=== PATIENT | female | born 1950 | race Caucasian/White ===

== ENCOUNTER → 2016-12-01 | Outpatient (CLI) | payer BC ==
[~2016-12-01] MED LIST: DEXL60CA4 PO; DICY10CA12 PO; FLNIN NAE; LYSI500T4 PO; SIMV20TA2 PO; tylenol sinus PO
--- NOTE | 2016-12-01 13:56 | MAMMOGRAPHY REPORT ---
BILATERAL DIGITAL SCREENING MAMMOGRAM WITH CAD: 12/01/2016 CLINICAL HISTORY: Routine screening. TECHNIQUE: Current study was also evaluated with a Computer Aided Detection (CAD) system. Bilatera l CC and MLO views were obtained. COMPARISON: Comparison is made to exams dated: 11/04/2015 mammogram, 10/22/2014 mammogram, 07/18/2013 mammogram, 07/12/2012 mammogram, 03/24/2011 mammogram, and 03/23/2010 mammogram - [facility]. BREAST COMPOSITION: There are scattered areas of fibroglandular density in both breasts. FINDINGS: No suspicious masses, calcifications, or areas of architectural distortion are noted in e ither breast. There has been no significant interval change compared to prior exams. IMPRESSION: ACR BI-RADS CATEGORY 1: NEGATIVE There is no mammographic evidence of malignancy. A 1 year screening mammogram is recommended. The p atient will receive written notification of the results. Approximately 10% of breast cancers are not detected with mammography. A negative mammographic repor t should not delay biopsy if a clinically suggestive mass is present. Sharon Garza M.D. ah/:12/01/2016 12:10:11 Metal Gauge Maker: Olaf SHARMA(R)(M), [facility] letter sent: Normal 1/2 BI-RADS Code: ACR BI-RADS Category 1: Negative
== END | disposition home or self-care (01) ==
LOC: C.MAMM 10:15
PROVIDERS: ATTEND Obstetrics & Gynecology
DX: Z12.31 Encounter for screening mammogram for malignant neoplasm of breast (principal)

== ENCOUNTER → 2017-03-03 | Outpatient (CLI) | payer BC ==
[2017-03-03 12:36] LABS: BLOOD UREA NITROGEN 9 mg/dl (7-18); BUN/CREATININE RATIO 12.4 (10-20); CALCIUM 9.1 mg/dl (8.5-10.1); CARBON DIOXIDE 28 mmol/L (21-32); CHLORIDE 107 mmol/L (98-107); CREATININE 0.74 mg/dl (0.60-1.20); GLUCOSE 77 mg/dl (70-99); POTASSIUM 4.8 mmol/L (3.5-5.1); SODIUM 141 mmol/L (136-145)
[2017-03-03 12:39] LABS: CHOLESTEROL 206 mg/dl (0-200); CHOLESTEROL/HDL RATIO 2.8; HDL CHOLESTEROL 73 mg/dl; TRIGLYCERIDES 100 mg/dl (0-150); VERY LOW DENSITY LIPOPROT CALC 20 mg/dl
== END | disposition home or self-care (01) ==
LOC: C.LABSPEC 12:03
PROVIDERS: ATTEND Internal Medicine
DX: E78.5 Hyperlipidemia, unspecified (principal); Z00.00 Encounter for general adult medical examination without abnormal findings

== ENCOUNTER → 2017-04-04 | Outpatient (CLI) | payer BC | END | disposition home or self-care (01) | LOC: C.LABSPEC 12:29 | PROVIDERS: ATTEND Internal Medicine | DX: R53.83 Other fatigue (principal) ==

== ENCOUNTER → 2017-07-26 | Outpatient (CLI) | payer BC ==
[~2017-07-26] MED LIST changes: +OPTIRAY 320 IV PRN
--- NOTE | 2017-07-26 11:38 | DIAGNOSTIC IMAGING REPORT ---
LOWER EXTREMITY WITH CLINICAL HISTORY: 66 years-old Female presenting with LEFT KNEE, CLOSED FX OF LEFT TIBIAL PLATEAU. TECHNIQUE: Multidetector CT of the left knee was performed after the administration of intravenous contrast. IV contrast: 93 mL of Optiray 320. A dose lowering technique was used consistent with the principles of ALARA (as low as reasonably achievable). COMPARISON: None. CT DOSE (mGy.cm): The estimated cumulative dose is 160.54 mGy.cm. FINDINGS: [employer] Bi Developer topogram: Unremarkable. The knee joint is congruent. No cortical step-off at the articular surface of the tibial plateau. Evidence of minimal subchondral sclerosis and early cystic change in both the articular surfaces of the medial and lateral femoral condyles and medial lateral tibial plateau consistent with degenerative change. No significant osteophytosis. Mild joint space loss in the medial compartment may be present. Similar changes also present at the patellofemoral articulation. No acute fracture or malalignment. Specifically, no convincing evidence of a tibial plateau fracture at this time. Suggestion of underlying osteopenia. This limits evaluation for nondisplaced fracture. Trace knee joint effusion. No popliteal cyst. Evaluation of the soft tissues is limited by CT. Allowing for this, the posterior cruciate ligament appears intact. Anterior cruciate ligament poorly assessed. Menisci poorly assessed. Quadriceps and patellar tendons intact. Collateral ligaments poorly assessed. Normal muscle bulk. Minimal nonspecific subcutaneous edema noted in the infrapatellar region as well as the popliteal fossa. Atherosclerosis with patent popliteal artery and major branch vessels. IMPRESSION: 1. No convincing evidence of a tibial plateau fracture at this time. Osteopenia limits evaluation for nondisplaced fracture. 2. Tricompartmental degenerative changes. 3. Trace knee joint effusion. Electronically signed by: Mookie Thakkar M.D. 07/26/2017 11:37 AM Dictated Date/Time: 07/26/2017 11:31 AM
== END | disposition home or self-care (01) ==
LOC: C.CTS 10:42
DX: M25.562 Pain in left knee (principal)

== ENCOUNTER → 2017-12-20 | Outpatient (CLI) | payer BC ==
[~2017-12-20] MED LIST changes: -OPTIRAY 320 IV PRN
--- NOTE | 2017-12-21 15:06 | MAMMOGRAPHY REPORT ---
BILATERAL DIGITAL SCREENING MAMMOGRAM TOMOSYNTHESIS WITH CAD: 12/20/2017 CLINICAL HISTORY: Routine screening. Patient has no complaints. TECHNIQUE: Breast tomosynthesis in addition to standard 2D mammography was performed. Current study was also evaluated with a Computer Aided Detection (CAD) system. COMPARISON: Comparison is made to exams dated: 12/01/2016 mammogram, 11/04/2015 mammogram, 10/22/2014 m ammogram, 07/18/2013 mammogram, 03/24/2011 mammogram, and 07/12/2012 mammogram - [facility]. BREAST COMPOSITION: There are scattered areas of fibroglandular density in both breasts. FINDINGS: The parenchymal pattern is unchanged. No developing mass, architectural distortion or clus ter of suspicious microcalcifications is seen in either breast. IMPRESSION: ACR BI-RADS CATEGORY 2: BENIGN There is no mammographic evidence of malignancy. A 1 year screening mammogram is recommended. The pa tient will receive written notification of the results. Approximately 10% of breast cancers are not detected with mammography. A negative mammographic report should not delay biopsy if a clinically suggestive mass is present. Keli Ayers M.D. ay/:12/20/2017 16:23:58 Motor Vehicle Examiner: Anu SHARMA(Zach)(M), [facility] letter sent: Normal 1/2 BI-RADS Code: ACR BI-RADS Category 2: Benign
== END | disposition home or self-care (01) ==
LOC: C.MAMM 10:12
PROVIDERS: ATTEND Obstetrics & Gynecology
DX: Z12.31 Encounter for screening mammogram for malignant neoplasm of breast (principal)

== ENCOUNTER 2019-06-26 18:11 | Observation (INO) ==
[2019-06-26] MEDS ORDERED: SODIUM CHLORIDE 0.9% 1000ML 1,000 ML IV ONE (18:52)
[2019-06-26 19:11] LABS: Basophils # (auto) 0.01 K/uL (0-0.2); Basophils % (auto) 0.1 %; Eosinophils # (auto) 0.13 K/uL (0-0.5); Eosinophils % (auto) 1.5 %; Hematocrit (blood only) 39.2 % (37-47); Hemoglobin 13.2 g/dL (12.0-16.0); Immature Granulocytes # (auto) 0.02 K/uL (0.00-0.02); Immature Granulocytes % (auto) 0.2 %; Lymphocytes # (auto) 2.08 K/uL (1.2-3.4); Lymphocytes % (auto) 24.1 %; Mean Corpuscular Hemoglobin 29.5 pg (25-34); Mean Corpuscular Hgb Conc 33.7 g/dL (32-36); Mean Corpuscular Volume 87.5 fL (80-100); Monocytes # (auto) 0.47 K/uL (0.11-0.59); Monocytes % (auto) 5.4 %; Neutrophils # (auto) 5.92 K/uL (1.4-6.5); Neutrophils % (auto) 68.7 %; Platelet Count 283 K/uL (130-400); RDW Coefficient of Variation 13.5 % (11.5-14.5); RDW Standard Deviation 43.4 fL (36.4-46.3); Red Blood Count 4.48 M/uL (4.2-5.4); White Blood Count 8.63 K/uL (4.8-10.8)
--- NOTE | 2019-06-26 19:24 | XRay Report ---
XR chest 1V portable CLINICAL HISTORY: 68 years-old Female presenting with Chest Pain. TECHNIQUE: Portable upright AP view of the chest was obtained. COMPARISON: None. FINDINGS: Cardiomediastinal silhouette normal. Minimal basilar opacities. No pleural effusion or pneumothorax. Osseous structures normal. Upper abdomen normal. IMPRESSION: 1. Minimal basilar opacities likely atelectasis or scarring. No convincing evidence of acute cardiop ulmonary disease. Electronically signed by: Mookie Thakkar M.D. 06/26/2019 7:23 PM
[2019-06-26 19:30] LABS: Alanine Aminotransferase 21 U/L (12-78); Albumin Globulin Ratio 1.1 (0.9-2); Albumin Level 3.8 gm/dl (3.4-5.0); Alkaline Phosphatase 64 U/L (45-117); Aspartate Aminotransferase 20 U/L (15-37); BUN Creatinine Ratio 17.8 (10-20); Bilirubin,Total 0.4 mg/dl (0.2-1); Blood Urea Nitrogen 11 mg/dl (7-18); Calcium 9.2 mg/dl (8.5-10.1); Carbon Dioxide 25 mmol/L (21-32); Chloride 106 mmol/L (98-107); Creatinine Clr Calc Pharmacy 75.7 ml/min; Est GFR (African American) 106.3; Est GFR (Non-African American) 91.7; Globulin 3.4 gm/dl (2.5-4.0); Glucose 94 mg/dl (70-99); Lipase 256 U/L (73-393); Magnesium 1.9 mg/dl (1.8-2.4); Phosphorus 3.3 mg/dl (2.5-4.9); Potassium 3.7 mmol/L (3.5-5.1); Sodium 139 mmol/L (136-145); Total Protein 7.2 gm/dl (6.4-8.2)
[2019-06-26 19:36] LABS: Thyroid Stimulating Hormone 0.942 uIu/ml (0.300-4.500); Troponin I < 0.015 ng/ml (0-0.045)
[2019-06-26] MEDS ORDERED: DiphenhydrAMINE HCL 50 MG/ML VIAL IV STA (19:49)
[2019-06-26] MEDS ORDERED: FAMOTIDINE 20MG IV PUSH 20 MG/5 ML SYR IV STA (19:49)
[2019-06-26] MEDS ORDERED: METOCLOPRAMIDE HCL INJ 5 MG/ML 2 ML VIAL IV STA (19:49)
[2019-06-26] MEDS ORDERED: OPTIRAY 320 125ml IV PRN (20:23)
--- NOTE | 2019-06-26 20:34 | CT Scan Report ---
CT angio chest PE protocol CLINICAL HISTORY: 68 years-old Female presenting with left-sided chest pain, back pain, clinical conc ralph for pulmonary embolus. TECHNIQUE: Multidetector CT angiography of the chest was performed after administration of intravenou s contrast. 3-D volumetric and/or maximum intensity projection (MIP) images were subsequently reconst ructed for review. IV contrast: 86 mL of Optiray 320. One or more dose lowering techniques were used consistent with the principles of ALARA (as low as reasonably achievable), including automatic exposu re control, mA or kV adjustment to individual patient size, and/or use of iterative reconstruction. COMPARISON: Chest x-ray performed earlier today. CT DOSE (mGy.cm): The estimated cumulative dose is 233.27 mGy.cm. FINDINGS: Caustic Room Operator topogram: Cholecystectomy clips. Pulmonary vasculature: The study is adequate for assessment of the pulmonary vascular tree. No filling defect within the pul monary arteries to suggest embolus. Main pulmonary artery is not enlarged. No flattening of the inter ventricular septum. No intracardiac filling defect. No reflux of contrast into the hepatic veins. Remaining chest: Soft tissues: Normal thyroid and thoracic inlet. No axillary, supraclavicular, mediastinal, or hilar lymphadenopathy. 4 vessel aortic arch. Normal heart size. Trace aortic valve calcification. No perica rdial or pleural effusion. Cholecystectomy clips. Lungs and airways: No pneumothorax. Central airways patent. Pulmonary arteries are not significantly enlarged relative to adjacent bronchi. No interlobular septal thickening. Minimal dependent changes l ikely atelectasis. Mild upper lobe predominant centrilobular emphysema. No focal nodule or infiltrate . Musculoskeletal: Degenerative changes of the spine. IMPRESSION: 1. No evidence of pulmonary embolus. No acute intrathoracic pathology. 2. Emphysema. Electronically signed by: Mookie Thakkar M.D. 06/26/2019 8:33 PM
--- NOTE | 2019-06-26 21:15 | Emergency Department Note ---
Entered by Jes Street acting as a scribe for History of Present Illness General Chief complaint: Chest Pain Stated complaint: CHEST AND BACK PAIN, NAUSEA Time Seen by Provider: 06/26/19 18:51 Source: patient History of Present Illness Onset (ago): hour(s) 4 Location: chest Radiation: back Pain Consistency: + intermittent Maximum Pain Intensity: 5 Quality: + aching Exacerbated By: not by other (deep breathing) Associated symptoms: + nausea/vomiting (Positive nausea. Negative vomiting. ) and + other (congestion); no cough and no fever/chills The patient is a 68 year old female who presents to the Emergency Room with complaints of intermittent chest pain starting 4 hours ago. The patient states t hat she started having left sided chest pain that radiated directly into her back. She reports that it felt like a tooth ache. She states that it would come for a few seconds every few minutes. She reports that when she got here, it subsided for a little, but has now started back up on her left side/ribs. She states that she has had GERD in the past, but typically her symptoms are right on her sternum. The patient notes that she was nauseous this morning when she woke up and has continued to be nauseous. The patient complains of congestion. The patient denies ever having this happen before, fever, chills, cough, vomiting, pain with deep breathing, and a use of blood thinners. Home Medications Home Medications Medication Instructions Recorded Confirmed Type cholecalciferol (vitamin D3) 1,000 unit PO DAILY 06/26/19 06/26/19 History [Vitamin D3] fluticasone propionate [Flonase 2 spray INTRANASAL DAILY PRN 06/26/19 06/26/19 History Allergy Relief] lysine 500 mg PO DAILY 06/26/19 06/26/19 History omeprazole 20 mg PO DAILY 06/26/19 06/26/19 History [id number] 1 - 2 tab PO HS PRN 06/26/19 06/26/19 History [Tylenol Sinus Severe] Allergies Allergy/AdvReac Type Severity Reaction Status Date / Time aspirin AdvReac Unknown HX OF Verified 06/26/19 19:05 GERD, TSANG'S ESOPHAGUS Past Med/Surg History Medical History Allergic rhinitis Tsang esophagus Hx of gastroesophageal reflux (GERD) Family History Other Family history non-contributory Social History Preferred Language: Czech Communication Ability: Effective Beliefs That Will Affect Care: None marital status: Current Living Situation: Spouse current occupational status: employed Feels Safe at Home: Yes Smoking Status: Never smoker Hx Alcohol Use: No Hx Substance Use: No Review of Systems See HPI for pertinent positives & negatives. and A total of 10 systems reviewed and were otherwise negative Physical Exam Vital Signs Vital Signs - 24 hr 06/26/19 18:15 06/26/19 19:08 06/26/19 20:02 Temperature 36.4 C L Temperature Source Oral Pulse Rate 83 Pulse Rate [Bilateral Apical] 75 77 Respiratory Rate 16 18 18 Respiratory Effort / Characteristics Non-Labored Respiratory Depth Normal Blood Pressure 146/82 H Blood Pressure [Left Arm] 135/72 143/73 H Blood Pressure Mean 103 Blood Pressure Mean [Left Arm] 93 96 Pulse Oximetry 97 97 98 Oxygen Delivery Method Room Air Sepsis Recent Fever Within 48 Hours No Sepsis New/Unexplained Change in Mental Status No Sepsis Action Taken by Nursing No Action Required 06/26/19 20:36 06/26/19 21:21 Temperature Temperature Source Pulse Rate Pulse Rate [Bilateral Apical] 85 89 Respiratory Rate 18 18 Respiratory Effort / Characteristics Respiratory Depth Blood Pressure Blood Pressure [Left Arm] 136/62 122/55 L Blood Pressure Mean Blood Pressure Mean [Left Arm] 86 77 Pulse Oximetry 98 98 Oxygen Delivery Method Room Air Room Air Sepsis Recent Fever Within 48 Hours Sepsis New/Unexplained Change in Mental Status Sepsis Action Taken by Nursing GENERAL: Awake, alert, well-appearing, in no distress HENT: Normocephalic, atraumatic. Oropharynx with dry mucous membranes and otherwise unremarkable. EYES: Normal conjunctiva. Sclera non-icteric. NECK: Supple. No nuchal rigidity. FROM. No JVD. RESPIRATORY: Clear to auscultation bilaterally. CARDIAC: Regular rate, normal rhythm. Extremities warm and well perfused. Pulses equal. ABDOMEN: Soft, non-distended. No tenderness to palpation. No rebound or guar ding. No masses. RECTAL: Deferred. MUSCULOSKELETAL: Chest examination reveals no tenderness. The back is symmetrical on inspection without obvious abnormality. There is no CVA tenderness to palpation. No joint edema. LOWER EXTREMITIES: Calves are equal size bilaterally and non-tender. No edema. No discoloration. NEURO: Normal sensorium. No sensory or motor deficits noted. SKIN: No rash or jaundice noted. Course Course 1929: The patient was evaluated in room B11A. A complete history and physical exam was performed. Administered Medications Ioversol (Optiray 320 125ml) 86 ml IV ONCE PRN PRN Reason: Interaction Checking Stop: 06/30/19 20:22 Last Admin: 06/26/19 20:23 Dose: 86 ml Documented by: [id number] Discontinued Medications Diphenhydramine HCl (Benadryl) 25 mg IV NOW STA Stop: 06/26/19 19:50 Last Admin: 06/26/19 19:59 Dose: 25 mg Documented by: [id number] Sodium Chloride (Nss 1000ml) 1,000 mls @ 999 mls/hr IV .Q1H1M ONE Stop: 06/26/19 19:52 Last Infusion: 06/26/19 21:38 Dose: 0 mls/hr Documented by: [id number] Admin: 06/26/19 19:11 Dose: 999 mls/hr Documented by: [id number] Famotidine (Pepcid 20mg Iv Push) 20 mg in 5 mls @ 2.5 mls/min IV NOW STA Stop: 06/26/19 19:50 Last Admin: 06/26/19 19:59 Dose: 2.5 mls/min Documented by: [id number] Metoclopramide HCl (Reglan) 10 mg IV NOW STA Stop: 06/26/19 19:50 Last Admin: 06/26/19 19:59 Dose: 10 mg Documented by: [id number] Impression & Plan Left-sided chest pain, New onset left bundle branch block (LBBB), Tsang esophagus, Nausea Medical Decision Making Differential Diagnosis Differential diagnoses includes but is not limited to acute coronary syndrome, myocardial infarction, pericarditis, pulmonary embolus, aortic dissection, pneumonia, pneumothorax, musculoskeletal, shingles, esophageal. Medical Records Attestation: I reviewed the patient's medical records. Home Medications Current Medication List: was personally reviewed by me Laboratory Data Attestation: I reviewed the patient's lab results. Result diagrams: 06/26/19 18:50 06/26/19 18:50 Lab Results 06/26/19 06/26/19 Range/Units 18:50 18:50 WBC 8.63 (4.8-10.8) K/uL RBC 4.48 (4.2-5.4) M/uL Hgb 13.2 (12.0-16.0) g/dL Hct 39.2 (37-47) % MCV 87.5 (80-100) fL MCH 29.5 (25-34) pg MCHC 33.7 (32-36) g/dL RDW Std Deviation 43.4 (36.4-46.3) fL RDW Coeff of Balta 13.5 (11.5-14.5) % Plt Count 283 (130-400) K/uL MPV 9.0 (7.4-10.4) fL Immature Gran % (Auto) 0.2 % Neut % (Auto) 68.7 % Lymph % (Auto) 24.1 % [place] % (Auto) 5.4 % Eos % (Auto) 1.5 % Baso % (Auto) 0.1 % Immature Gran # (Auto) 0.02 (0.00-0.02) K/uL Neut # (Auto) 5.92 (1.4-6.5) K/uL Lymph # (Auto) 2.08 (1.2-3.4) K/uL [place] # (Auto) 0.47 (0.11-0.59) K/uL Eos # (Auto) 0.13 (0-0.5) K/uL Baso # (Auto) 0.01 (0-0.2) K/uL Sodium 139 (136-145) mmol/L Potassium 3.7 (3.5-5.1) mmol/L Chloride 106 (98-107) mmol/L Carbon Dioxide 25 (21-32) mmol/L Anion Gap 8.0 (3-11) BUN 11 (7-18) mg/dl Creatinine 0.64 (0.6-1.2) mg/dl Est Cr Clr Drug Dosing 75.7 ml/min Est GFR ( Amer) 106.3 Est GFR (Non-Af Amer) 91.7 BUN/Creatinine Ratio 17.8 (10-20) Glucose 94 (70-99) mg/dl Calcium 9.2 (8.5-10.1) mg/dl Phosphorus 3.3 (2.5-4.9) mg/dl Magnesium 1.9 (1.8-2.4) mg/dl Total Bilirubin 0.4 (0.2-1) mg/dl AST 20 (15-37) U/L ALT 21 (12-78) U/L Alkaline Phosphatase 64 (45-117) U/L Troponin I < 0.015 (0-0.045) ng/ml Total Protein 7.2 (6.4-8.2) gm/dl Albumin 3.8 (3.4-5.0) gm/dl Globulin 3.4 (2.5-4.0) gm/dl Albumin/Globulin Ratio 1.1 (0.9-2) Lipase 256 (73-393) U/L TSH 0.942 (0.300-4.500) uIu/ml Imaging Data Radiologist's Impression: Radiology results as stated below per my review and the radiologist's interpretation: XR chest 1V portable CLINICAL HISTORY: 68 years-old Female presenting with Chest Pain. TECHNIQUE: Portable upright AP view of the chest was obtained. COMPARISON: None. FINDINGS: Cardiomediastinal silhouette normal. Minimal basilar opacities. No pleural effusion or pneumothorax. Osseous structures normal. Upper abdomen normal. IMPRESSION: 1. Minimal basilar opacities likely atelectasis or scarring. No convincing evidence of acute cardiopulmonary disease. Electronically signed by: Mookie Thakkar M.D. 06/26/2019 7:[address] angio chest PE protocol CLINICAL HISTORY: 68 years-old Female presenting with left-sided chest pain, b ack pain, clinical concern for pulmonary embolus. TECHNIQUE: Multidetector CT angiography of the chest was performed after administration of intravenous contrast. 3-D volumetric and/or maximum intensity projection (MIP) images were subsequently reconstructed for review. IV contrast: 86 mL of Optiray 320. One or more dose lowering techniques were used consistent with the principles of ALARA (as low as reasonably achievable), including automatic exposure control, mA or kV adjustment to individual patient size, and/or use of iterative reconstruction. COMPARISON: Chest x-ray performed earlier today. CT DOSE (mGy.cm): The estimated cumulative dose is 233.27 mGy.cm. FINDINGS: Polysomnography Technician topogram: Cholecystectomy clips. Pulmonary vasculature: The study is adequate for assessment of the pulmonary vascular tree. No filling defect within the pulmonary arteries to suggest embolus. Main pulmonary artery is not enlarged. No flattening of the interventricular septum. No intracardiac filling defect. No reflux of contrast into the hepatic veins. Remaining chest: Soft tissues: Normal thyroid and thoracic inlet. No axillary, supraclavicular, mediastinal, or hilar lymphadenopathy. 4 vessel aortic arch. Normal heart size. Trace aortic valve calcification. No pericardial or pleural effusion. Chol ecystectomy clips. Lungs and airways: No pneumothorax. Central airways patent. Pulmonary arteries a re not significantly enlarged relative to adjacent bronchi. No interlobular septal thickening. Minimal dependent changes likely atelectasis. Mild upper lobe predominant centrilobular emphysema. No focal nodule or infiltrate. Musculoskeletal: Degenerative changes of the spine. IMPRESSION: 1. No evidence of pulmonary embolus. No acute intrathoracic pathology. 2. Emphysema. Electronically signed by: Mookie Thakkar M.D. 06/26/2019 8:33 PM ECG Data Attestation: I personally reviewed and interpreted this ECG as follows: Indication: + chest pain Rate (beats per minute): 79 Rhythm: + normal sinus ECG Intervals/blocks: + Left bundle branch block ECG [place]: + Normal ECG ST segments: no ST elevation ECG Findings: + Other (QT-c 470); no PACs and no PVCs Comparison ECG Date: from (12/11/2010) Change: the following changes noted (LBBB is new) Blood Pressure Blood Pressure Findings: Elevated blood pressure MDM Narrative Patient is a pleasant 60-year-old woman with a past Xavier history of Tsang's esophagus who presents emergency department with complaints of intermittent chest pain that began approximately 4 hours ago that lasts for 2-3 seconds and occurs every several minutes. She does reports associated nausea. She reports nasal congestion for which she has been using Afrin 4 times daily for past several days. She denies any shortness of breath, cough, fevers. On arrival patient is in no acute distress, afebrile stable vital signs. EKG demonstrates a left bundle branch block which is new from EKG in 2010. There is no overt acute ischemia/Sgarboss criteria. Chest x-ray was negative for acute process. WBC, H/H and platelets within normal limits. Chemistry without acidosis. Electrolytes and LFTs unremarkable. Initial troponin negative/undetectable. CTA of the chest was performed and was negative for PE or pneumonia. There is some evidence of emphysema however the patient reports stopping smoking 10 years ago. The patient reported feeling improved after IV fluid hydration, Pepcid, Reglan. Patient symptoms do not appear convincing for cardiac etiology however given unclear chronicity of her left bundle branch block reasonable to admit the patient for further evaluation. Case was discussed with Dr. Barba, [facility] hospitalist, who will evaluate the patient for admission. Discharge Plan Visit Data *Final* Discharge Date/Time: 06/26/19 22:20 Chief Complaint: Chest Pain Stated Complaint: CHEST AND BACK PAIN, NAUSEA ED Provider: Avery Olmos Discharge Problem: Left-sided chest pain, New onset left bundle branch block (LBBB), Tsang esophagus, Nausea Patient Disposition: Admitted As Inpatient Discharge Instructions Interventions: ED Discharge Assessment Last Done: 06/26/19 22:20 The scribe's documentation has been prepared under my direction and personally reviewed by me in its entirety. I confirm that the note above accurately reflects all work, treatment, procedures, and medical decision making performed by me.
[2019-06-26] MEDS ORDERED: ONDANSETRON INJ 2 MG/ML 2 ML VIAL IV PRN (22:39)
[2019-06-26] MEDS ORDERED: FLUTICASONE PROPIONATE NA SPR 16 GM BTL NAE PRN (22:39)
[2019-06-26] MEDS ORDERED: ALUMINUM/MAGNESIUM SUSP 30 ML UDC PO PRN (22:39)
[2019-06-26] MEDS ORDERED: MAGNESIUM HYDROXIDE SUSP 30 ML UDC PO PRN (22:39)
[2019-06-26] MEDS ORDERED: ACETAMINOPHEN 325 MG TAB PO PRN (22:39)
[2019-06-26] MEDS ORDERED: POLYETHYLENE (MIRALAX) 17 GM PACK PO PRN (22:39)
--- NOTE | 2019-06-26 22:47 | History & Physical Report ---
Date of Service June 26, 2019 Assessment & Plan (1) Left-sided chest pain: New left-sided chest pain- Maternal side of family with multiple members with heart disease. The patient will be admitted to telemetry for serial cardiac enzymes, serial EKG's, cardiac rhythm monitoring and a 2-D echocardiogram with Dopplers. Hold on giving aspirin at this time, as patient reports sensitivity related to her GERD and Tsang's Present on Admission?: Yes (2) New onset left bundle branch block (LBBB): EKG today compared to most recent 2010. Left bundle branch block is new on this EKG. We will admit as noted above, and order echocardiogram for structural assessment. Present on Admission?: Yes (3) Hx of gastroesophageal reflux (GERD): GERD/Tsang's esophagus- She reports that she is due for a repeat endoscopy sometime in July with Dr. Solis. Her symptoms today may be associated with esophageal spasm. Continue omeprazole/pantoprazole daily. Present on Admission?: Yes (4) Tsang esophagus: See above Present on Admission?: Yes (5) Allergic rhinitis: Continue Flonase allergy relief nasal spray as needed Present on Admission?: Yes History of Present Illness Chief Complaint: Patient presents to the emergency department with intermittent left-sided chest pain that occasionally goes toward her back, that began about 4 hours prior to arrival. Primary Care Provider: Jas Brooks MD The patient is a 68-year-old female with a past medical history including GERD and Tsang's esophagus, who presents to the emergency department with complaint of new onset of left-sided chest pain, occasionally radiating toward her back on outside, which will resolve spontaneously, then start back up again unrelated to physical activity level. She does report occasional chest discomfort from her GI issues, but these symptoms are different. She does have a strong family history of heart disease on her mother side of the family. She has not had a stress test or echocardiogram in the past. Allergies Allergy/AdvReac Type Severity Reaction Status Date / Time aspirin AdvReac Unknown HX OF Verified 06/26/19 19:05 GERD, TSANG'S ESOPHAGUS Home Medications Home Medications Medication Instructions Recorded Confirmed Type cholecalciferol (vitamin D3) 1,000 unit PO DAILY 06/26/19 06/26/19 History [Vitamin D3] fluticasone propionate [Flonase 2 spray INTRANASAL DAILY PRN 06/26/19 06/26/19 History Allergy Relief] lysine 500 mg PO DAILY 06/26/19 06/26/19 History omeprazole 20 mg PO DAILY 06/26/19 06/26/19 History [id number] 1 - 2 tab PO HS PRN 06/26/19 06/26/19 History [Tylenol Sinus Severe] Past Med/Surg History Medical History Tsang esophagus Hx of gastroesophageal reflux (GERD) Family History Other Family history non-contributory Social History Preferred Language: Greenlandic Communication Ability: Effective Beliefs That Will Affect Care: None marital status: Current Living Situation: Spouse current occupational status: employed Feels Safe at Home: Yes Smoking Status: Never smoker Hx Alcohol Use: No Hx Substance Use: No Review of Systems Review of Systems: The patient denies palpitations, cough, lower extremity swelling, sore throat, fevers, chills, sweats, nausea, vomiting, diarrhea , constipation, abdominal pain, pelvic pain, blood in urine or stool, dysuria, urinary frequency or urgency, lightheadedness, dizziness, headache, memory loss, loss of consciousness, rash, abnormal bruising or bleeding, imbalance, focal or generalized weakness, numbness or tingling in arms or legs, generalized arthralgias or myalgias, neck pain, or night sweats. The review of systems is otherwise negative other than for that already noted above, and at least 10 systems have been reviewed. Physical Exam Physical Exam: The patient is awake, alert and oriented 3, well developed and well nourished, normocephalic and atraumatic, lying in bed and in no acute distress. HEENT--PERRL, EOMI, mucous membranes and oropharynx dry. Neck--supple. No JVD. No bruits. Thyroid normal, trachea midline, no adenopathy. Heart--normal S1 and S2. No murmurs, rubs or gallops. Lungs--clear bilaterally, no respiratory distress, no accessory muscle use. Abdomen--normal bowel sounds and soft. Nontender. Nondistended, no hernias or masses, no organomegaly. Extremities--no cyanosis or clubbing. No edema. There are good distal pulses b/l. Dermatologic--normal skin turgor, normal color, no abnormal lymph nodes, no rash. Neurologic--cranial nerves II through XII grossly intact. Rheumatologic--normal range of motion. Psychiatric--normal affect. Results & Data Vital Signs (Past 12 Hours) Vital Signs Temp Pulse Pulse Resp BP BP Pulse Ox 06/26/19 22:19 91 H 18 137/73 98 06/26/19 21:21 89 18 122/55 L 98 06/26/19 20:36 85 18 136/62 98 06/26/19 20:02 77 18 143/73 H 98 06/26/19 19:08 75 18 135/72 97 06/26/19 18:15 97.5 F L 83 16 146/82 H 97 Laboratory Results Laboratory Results WBC 8.63 K/uL (4.8-10.8) 06/26/19 18:50 RBC 4.48 M/uL (4.2-5.4) 06/26/19 18:50 Hgb 13.2 g/dL (12.0-16.0) 06/26/19 18:50 Hct 39.2 % (37-47) 06/26/19 18:50 MCV 87.5 fL (80-100) 06/26/19 18:50 MCH 29.5 pg (25-34) 06/26/19 18:50 MCHC 33.7 g/dL (32-36) 06/26/19 18:50 RDW Std Deviation 43.4 fL (36.4-46.3) 06/26/19 18:50 RDW Coeff of Balta 13.5 % (11.5-14.5) 06/26/19 18:50 Plt Count 283 K/uL (130-400) 06/26/19 18:50 MPV 9.0 fL (7.4-10.4) 06/26/19 18:50 Immature Gran % (Auto) 0.2 % 06/26/19 18:50 Neut % (Auto) 68.7 % 06/26/19 18:50 Lymph % (Auto) 24.1 % 06/26/19 18:50 Mckean % (Auto) 5.4 % 06/26/19 18:50 Eos % (Auto) 1.5 % 06/26/19 18:50 Baso % (Auto) 0.1 % 06/26/19 18:50 Immature Gran # (Auto) 0.02 K/uL (0.00-0.02) 06/26/19 18:50 Neut # (Auto) 5.92 K/uL (1.4-6.5) 06/26/19 18:50 Lymph # (Auto) 2.08 K/uL (1.2-3.4) 06/26/19 18:50 Mckean # (Auto) 0.47 K/uL (0.11-0.59) 06/26/19 18:50 Eos # (Auto) 0.13 K/uL (0-0.5) 06/26/19 18:50 Baso # (Auto) 0.01 K/uL (0-0.2) 06/26/19 18:50 Sodium 139 mmol/L (136-145) 06/26/19 18:50 Potassium 3.7 mmol/L (3.5-5.1) 06/26/19 18:50 Chloride 106 mmol/L (98-107) 06/26/19 18:50 Carbon Dioxide 25 mmol/L (21-32) 06/26/19 18:50 Anion Gap 8.0 (3-11) 06/26/19 18:50 BUN 11 mg/dl (7-18) 06/26/19 18:50 Creatinine 0.64 mg/dl (0.6-1.2) 06/26/19 18:50 Est Cr Clr Drug Dosing 75.7 ml/min 06/26/19 18:50 Est GFR ( Amer) 106.3 06/26/19 18:50 Est GFR (Non-Af Amer) 91.7 06/26/19 18:50 BUN/Creatinine Ratio 17.8 (10-20) 06/26/19 18:50 Glucose 94 mg/dl (70-99) 06/26/19 18:50 Calcium 9.2 mg/dl (8.5-10.1) 06/26/19 18:50 Phosphorus 3.3 mg/dl (2.5-4.9) 06/26/19 18:50 Magnesium 1.9 mg/dl (1.8-2.4) 06/26/19 18:50 Total Bilirubin 0.4 mg/dl (0.2-1) 06/26/19 18:50 AST 20 U/L (15-37) 06/26/19 18:50 ALT 21 U/L (12-78) 06/26/19 18:50 Alkaline Phosphatase 64 U/L (45-117) 06/26/19 18:50 Troponin I < 0.015 ng/ml (0-0.045) 06/26/19 22:59 Total Protein 7.2 gm/dl (6.4-8.2) 06/26/19 18:50 Albumin 3.8 gm/dl (3.4-5.0) 06/26/19 18:50 Globulin 3.4 gm/dl (2.5-4.0) 06/26/19 18:50 Albumin/Globulin Ratio 1.1 (0.9-2) 06/26/19 18:50 Lipase 256 U/L (73-393) 06/26/19 18:50 TSH 0.942 uIu/ml (0.300-4.500) 06/26/19 18:50 Diagnostic Findings [place], [place] [phone] XRay Report Patient: ERICA MCCULLOUGH Date: 06/26/19 MR#: [id number]: [facility] S TALIA MOMIN Acct ID:[id number]: Date: [address] [place] [address] Zip: [place] [address] Age: 68Location: ED Sex: F Room/Bed: Att Phy:Diagnosis: CHEST AND BACK PAIN, NAUSEA Edwige Phy: Jas Rosado M.D.Service Date: 06/26/19 Fam Phy:Interpreting Phy: Mookie Thakkar MD Admit Phy: Ordering Phy: Avery Olmos M.D. cc: ~ XR chest 1V portable CLINICAL HISTORY: 68 years-old Female presenting with Chest Pain. TECHNIQUE: Portable upright AP view of the chest was obtained. COMPARISON: None. FINDINGS: Cardiomediastinal silhouette normal. Minimal basilar opacities. No pleural effusion or pneumothorax. Osseous structures normal. Upper abdomen normal. IMPRESSION: 1. Minimal basilar opacities likely atelectasis or scarring. No convincing evidence of acute cardiopulmonary disease. Electronically signed by: Mookie Thakkar M.D. 06/26/2019 7:23 PM Dictated: 06/26/191921 Transcribed: 06/26/191921 [place], [place] [phone] CT Scan Report Patient: ERICA MCCULLOUGH Date: 06/26/19 MR#: [id number]: [facility] S TALIA MOMIN Acct ID:[id number]: Date: 1950[facility] Zip: [place] [address] Age: 68Location: ED Sex: F Room/Bed: Att Phy:Diagnosis: CHEST AND BACK PAIN, NAUSEA Edwige Phy: Jas Rosado M.D.Service Date: 06/26/19 Fam Phy:Interpreting Phy: Mookie Thakkar MD Admit Phy: Ordering Phy: Avery Olmos M.D. cc: ~ CT angio chest PE protocol CLINICAL HISTORY: 68 years-old Female presenting with left-sided chest pain, back pain, clinical concern for pulmonary embolus. TECHNIQUE: Multidetector CT angiography of the chest was performed after administration of intravenous contrast. 3-D volumetric and/or maximum intensity projection (MIP) images were subsequently reconstructed for review. IV contrast: 86 mL of Optiray 320. One or more dose lowering techniques were used consistent with the principles of ALARA (as low as reasonably achievable), including automatic exposure control, mA or kV adjustment to individual patient size, and/or use of iterative reconstruction. COMPARISON: Chest x-ray performed earlier today. CT DOSE (mGy.cm): The estimated cumulative dose is 233.27 mGy.cm. FINDINGS: Practice Director topogram: Cholecystectomy clips. Pulmonary vasculature: The study is adequate for assessment of the pulmonary vascular tree. No filling defect within the pulmonary arteries to suggest embolus. Main pulmonary artery is not enlarged. No flattening of the interventricular septum. No intracardiac filling defect. No reflux of contrast into the hepatic veins. Remaining chest: Soft tissues: Normal thyroid and thoracic inlet. No axillary, supraclavicular, mediastinal, or hilar lymphadenopathy. 4 vessel aortic arch. Normal heart size. Trace aortic valve calcification. No pericardial or pleural effusion. Cholecystectomy clips. Lungs and airways: No pneumothorax. Central airways patent. Pulmonary arteries are not significantly enlarged relative to adjacent bronchi. No interlobular septal thickening. Minimal dependent changes likely atelectasis. Mild upper lobe predominant centrilobular emphysema. No focal nodule or infiltrate. Musculoskeletal: Degenerative changes of the spine. IMPRESSION: 1. No evidence of pulmonary embolus. No acute intrathoracic pathology. 2. Emphysema. Electronically signed by: Mookie Thakkar M.D. 06/26/2019 8:33 PM Dictated: 06/26/192026 Transcribed: 06/26/192026 Code Status & VTE Plan Code Status Full code VTE Prophylaxis Plan VTE Prophylaxis will be ordered: Yes PG Care Time/CCT Total # of Minutes Spent Total Time Spent with Patient: Total time spent is greater than 50% in coordination of care (as documented) at patient's floor/unit and/or counseling patient:
[2019-06-27] MEDS ORDERED: NON-FORMULARY MEDICATION (Lysine 500 MG) PO SCH (09:00)
[2019-06-27] MEDS ORDERED: CHOLECALCIFEROL 1,000 UNITS TAB PO SCH (09:00)
[2019-06-27] MEDS ORDERED: PANTOprazole 40 MG TAB PO SCH (09:00)
--- NOTE | 2019-06-27 17:38 | Discharge Summary ---
Date of Service June 27, 2019 Admission HPI Per Admitting Provider The patient is a 68-year-old female with a past medical history including GERD and Tsang's esophagus, who presents to the emergency department with complaint of new onset of left-sided chest pain, occasionally radiating toward her back on outside, which will resolve spontaneously, then start back up again unrelated to physical activity level. She does report occasional chest discomfort from her GI issues, but these symptoms are different. She does have a strong family history of heart disease on her mother side of the family. She has not had a stress test or echocardiogram in the past. Principal Diagnosis msk rib strain Discharge Exam Constitutional WD/WN, vitals as above Eyes PERRL, conjunctivae normal, anicteric sclerae ENMT external ear and nose normal, oropharynx normal Respiratory normal respiratory effort, lungs clear to auscultation Cardiovascular RRR, no murmur, no edema Gastrointestinal (Abdomen) normal bowel sounds, soft, nontender, no hepatosplenomegaly Musculoskeletal CP reproducible on palpation L anterior sternum along rib cage to back Inhalation SD Skin no rashes, warm and dry Psychiatric A+Ox3, euthymic affect Discharge Data Allergies Allergy/AdvReac Type Severity Reaction Status Date / Time aspirin AdvReac Unknown HX OF Verified 06/26/19 19:05 GERD, TSANG'S ESOPHAGUS Consultations 06/26/19 21:02 ED Decision to Admit Stat 06/26/19 22:39 Consult Case Management - Discharge Planning Routine Ordered Studies 06/26/19 19:49 CT angio chest PE protocol Stat Hospital Course (1) Left-sided chest pain: 68-year-old female with a past medical history including GERD and Tsang's esophagus presented to the emergency department with complaint of new onset of left-sided chest pain. The following was the medical managment during stay here: Left-sided chest pain -Maternal side of family with multiple members with heart disease -serial cardiac enzymes neg, serial EKG's unremarkable except new LBBB -2-D echocardiogram: LV systolic fxn is low normal. No sig valvular heart dx -Not given aspirin as patient reports sensitivity related to her GERD and Tsang's -this pain was likely MSK in nature (recent lifting of heavy [place] at home [employer]) as pain was reproducible on PE . Some OMT was done in hospital and home exercises were demonstrated to pt to cont on d/c New onset left bundle branch block -seen on EKG on admission compared to most recent 2011 -echocardiogram for structural assessment- unremarkable, otherwise as above GERD/Tsang's esophagus -She reports that she is due for a repeat endoscopy sometime in July with Dr. Solis. -symptoms unlikely to be associated with esophageal spasm -Continue omeprazole/pantoprazole daily Allergic rhinitis -Continue Flonase allergy relief nasal spray as needed At time of d/c, pt had no other acute concerns or complaints. Total Time Total Time Spent Total Time Spent (In Minutes): <30 Discharge Plan Discharge Items Patient Disposition: Home - Self-Care Reason For Visit: CHEST PAIN Discharge Diagnosis: Rib strain Activity: Per Instructions section Non-emergency contact: Primary Care Provider Call non-emergency contact if: you have any medication questions, your symptoms worsen and your pain is not controlled Follow-up/Referrals: Jas Brooks MD [Primary Care Provider] - 07/04/19 11:30 am (Please, follow up with Dr. Taylor Brito on TuesdayJuly 04 at 11:30 am. *If you need to change this appointment, call the office at [phone].) Diet: Regular Addtl Attending Provider Instructions: You were admitted for concerns of chest pain that was different than your normal reflux. This was likely due to a rib/muscle strain rather than being cardiac in origin. We got heart injury markers that were negative. Your EKG did not show any concern for heart attack. It did show an electrical blockage, which many times is nonconcerning. To be sure, we got an ECHO and it showed Please follow the below instructions on discharge: -Continue to do the doorway exercises at home that we taught you here at the hospital. Your chest pain was likely musculoskeletal in origin and these home exercises will help manage that. -Please follow up with your PCP within one week of discharge at date listed above -If you have and similar symptoms of chest pain at rest or exertion, then please come back into the ER -Continue all home medications as before Pending Studies at Discharge: No Stand-Alone Forms: [employer], Smoking Cessation Medications and DC Order Prescriptions: Continued lysine 500 mg Tablet 500 mg PO DAILY RF: 0 fluticasone propionate [Flonase Allergy Relief] 50 mcg/actuation [place],Suspension 2 spray INTRANASAL DAILY PRN (Reason: Congestion) RF: 0 cholecalciferol (vitamin D3) [Vitamin D3] 1,000 unit Capsule 1,000 unit PO DAILY RF: 0 Tylenol Sinus Severe 5-325-200 mg Tablet 1 - 2 tab PO HS PRN (Reason: SINUS CONGESTION) RF: 0 omeprazole 20 mg Tablet,Delayed Release (Dr/Ec) 20 mg PO DAILY RF: 0 Discharge Orders: Discharge Order (Routine); Ordered 06/27/19 Ordered By: Maximino Perez Admission Data Admit Date/Time: 06/26/19 21:36 Attending Provider: Maximino Perez Admit Provider: Ulises Barba Primary Care Provider: Jas Brooks Other Providers: Ulises Barba Other Interventions: Discharge Summary Assessment (RN) Last Done: 06/27/19 16:53 DC Date/Time DO NOT enter until pt leaves facility: 06/27/19 17:17 Supervising Physician Co-Signing Physician Notes I personally examined the patient and verified all way points of history and exa m, discussed case, and agree with decision making with Dr España. Feeling better overall. Extensive discussions on diagnosis/work-up/plan Vitals noted, in general she is awake and alert pleasant no distress. HEENT normocephalic atraumatic mucous members moist. Musculoskeletal/osteopathic structural exam shows left-sided rib tenderness with ribs 4 and 5 more decreased/exhaled compared to the opposite side. Muscle energy done x3 repetitionspatient tolerated well. Chest painappears to have been rib relatedshe did note she was moving heavy boxes of [place] with hindsight. Because of her new left bundle of cardiac work- up was obviously necessary, but with her echo looking reassuring and her troponins being negative, certainly this does not appear cardiac. Somatic dysfunction rib cage regionOMT as above. Stretches taught. Patient stable for home Resident Activity Tracking Resident Involvement: Resident Care Provided Care Provided: Adult Hospital Medicine
--- NOTE | 2019-06-27 19:40 | Hospitalist Progress Note ---
Date of Service June 27, 2019 Results & Data Vital Signs (Past 12 Hours) Vital Signs Temp Pulse Pulse Resp BP BP Pulse Ox 06/27/19 16:53 98.4 F 91 H 71 18 111/66 123/83 95 06/27/19 16:12 98.4 F 71 18 123/83 95 06/27/19 11:57 97.7 F 68 18 129/69 96 PG Care Time/CCT Total # of Minutes Spent Total Time Spent with Patient: Total time spent is greater than 50% in coordination of care (as documented) at patient's floor/unit and/or counseling patient:
--- NOTE | 2019-06-27 19:40 | Billing Data ---
Coding Level of Care Code 83566 OBS Care - Discharge
== END 2019-06-27 17:17 | disposition home or self-care (01) ==
LOC: 2S 18:11 → ED 18:11 → SUATTDRO 21:36 → 2S 22:20